=== PATIENT | female | born 1995 | race Caucasian/White ===

== ENCOUNTER 2020-02-08 06:30 | Emergency (ER) | payer SELFPAY ==
[2020-02-08 07:17] LABS: #Basophils 0.1 thou/uL (0.0-0.2); #Eosinphils 0.1 thou/uL (0.0-0.7); #Lymphocytes 1.8 thou/uL (1.20-3.40); #Monocytes 0.6 thou/uL (0.11-0.59); #Neutrophils 7.3 thou/uL (1.40-6.50); %Basophils 0.5 % (0.0-1.0); %Eosinophils 1.1 % (0.0-10.0); %Lymphocytes 18.2 % (21.0-51.0); %Neutrophils 74.1 % (42.0-75.0); Hemoglobin 13.4 g/dL (12.0-16.0); Mean Corpuscular HGB CONC 33.4 g/dL (32.0-36.0); Mean Corpuscular Volume 83.8 fL (78.0-98.0); Mean Platelet Volume 8.4 fL (7.4-10.4); Platelet Count 202 thou/uL (130-400); RBC Distribution Width 13.3 % (11.5-14.5); White Blood Cell (WBC) Count 9.9 thou/uL (4.8-10.8)
[2020-02-08 07:18] LABS: Bacteria/HPF 1+ HPF (None Seen); Bilirubin Negative (Negative); Blood, Urine 2+ (Negative); Clarity Clear (Clear); Glucose, Urine (Dipstick) Normal (Negative); Ketone, Urine Negative (Negative); Leukocyte Negative Leu/uL (Negative); Nitrite Negative (Negative); Protein, Urine (Dipstick) Negative (Neg-Trace); RBC/HPF 0-3 HPF (0-3); Specific Gravity, Urine 1.003 (1.002-1.036); Squamous Epithelial 0-3 HPF (0-3); Urobilinogen Normal mg/dL (Less than 2); WBC/HPF 0-3 HPF (0-3)
[2020-02-08] MEDS ORDERED: Acetaminophen 500 MG TAB ONE (08:04)
--- NOTE | 2020-02-08 10:09 | ULT ---
Exam: Transabdominal and endovaginal pelvic ultrasound HISTORY:First trimester vaginal bleeding. COMPARISON: None TECHNIQUE: Transabdominal and endovaginal imaging of the pelvis is performed. Ovaries are interrogate d with grayscale, color flow, Doppler imaging and spectral wave form analysis FINDINGS: Uterus: No myometrial masses. Uterus measurin.7 x 4.4 x 8.4 cm. Endometrium: Limited evaluation the endometrium on the transabdominal and endovaginal images. In the lower uterine segment, there does appear to be a gestational sac and pole. [place]-rump length 0.96 cm corresponding to gestational age of 7 weeks 0 days heart tones: Absent. Free fluid: None Right ovary: Not appreciated Right ovary measurement: Not applicable Left ovary: Normal echotexture. Left ovary measurements: 1.9 x 2.4 x 2.9 cm Ovarian Doppler: There is vascular flow to the left ovary. IMPRESSION: 1. Probable gestational sac in the lower uterine segment. Single pole with absent heart t ones. There is sonographic evidence of a active spontaneous . 2. Small bowel ultrasound and serial beta-hCGs are recommended.
[2020-02-08] MEDS ORDERED: Morphine 4 MG/ML VIAL ONE (10:30)
[2020-02-08 18:06] LABS: Chlamydia by PCR Not Detected (NotDetected); GC by PCR Not Detected (NotDetected)
== END 2020-02-08 11:52 | disposition home or self-care (01) ==
LOC: ERS 06:30
DX: O03.4 Incomplete spontaneous abortion without complication (principal); Z3A.11 11 weeks gestation of pregnancy
CPT/HCPCS: 36415; 76856; 81003; 81015; 84702; 85025; 86900; 86901; 87480; 87491; 87510; 87591; 87660; 88305; 90384; 96372; J2270

== ENCOUNTER 2020-02-08 17:59 | Emergency (ER) | payer SELFPAY ==
[2020-02-08] MEDS ORDERED: Ibuprofen 200 MG TAB ONE (18:23)
[2020-02-08] MEDS ORDERED: Fentanyl 100 MCG/2 ML VIAL ONE (20:05)
[2020-02-08] MEDS ORDERED: Morphine 4 MG/ML VIAL ONE (21:12)
== END 2020-02-08 21:52 | disposition home or self-care (01) ==
LOC: ERS 17:59
DX: O03.4 Incomplete spontaneous abortion without complication (principal)
CPT/HCPCS: 88305; 96372; 99283; J2270; J3010